=== PATIENT | male | born 1955 | race Caucasian/White ===

== ENCOUNTER 2021-10-23 22:06 | Inpatient (IN) ==
[2021-10-24] MEDS ORDERED: Naloxone 0.4 MG/ML INJ IVP PRN (00:04)
[2021-10-24] MEDS ORDERED: *HR* Promethazine 25 MG/ML VIAL IM PRN (00:04)
[2021-10-24] MEDS ORDERED: Acetaminophen 325 MG TABLET PO PRN (00:04)
[2021-10-24] MEDS ORDERED: Melatonin 3 MG TABLET PO PRN (00:04)
[2021-10-24] MEDS ORDERED: Saliva Stimulant 44.3ml BOTTLE PO PRN (00:06)
[2021-10-24] MEDS ORDERED: Artificial Tears SOLN 15 ML BOTTLE BOTH EYES PRN (00:06)
[2021-10-24] MEDS ORDERED: Saline Nasal Spray 44 ML BOTTLE NS PRN (00:06)
[2021-10-24] MEDS ORDERED: Ipratropium 1 PUFF INHALER IH SCH (00:15)
[2021-10-24 01:18] LABS: Basophils % 0.2 %; Hematocrit 44.5 % (37.5-50.1); Immature Granulocytes % 1.3 % (0-4); Lymphocytes # 0.4 K/mcL (0.6-4.6); Lymphocytes % 8.8 %; Mean Corpuscular HGB Conc 33.7 g/dL (31.6-35.5); Mean Corpuscular Hemoglobin 27.1 pg (28.0-33.3); Mean Corpuscular Volume 80.3 fL (83.0-100.0); Mean Platelet Volume 9.9 fL (9.4-12.4); Monocytes # 0.2 K/mcL (0.0-1.3); Monocytes % 3.7 %; Platelet Count 168 K/mcL (140-400); Red Blood Count 5.54 M/mcL (4.19-5.50); White Blood Count 4.6 K/mcL (4.3-11.1)
[2021-10-24 01:25] LABS: INR 1.1; Prothrombin Time 12.6 Seconds (9.4-12.1)
[2021-10-24 01:34] LABS: Platelet Estimate Normal (Normal)
[2021-10-24 01:38] LABS: Alanine Aminotransferase 47 Units/L (7-52); Albumin 3.7 g/dL (3.5-5.7); Albumin/Globulin Ratio 1.3 (1.1-2.2); Alkaline Phosphatase 73 Units/L (34-104); Aspartate Amino Transferase 103 Units/L (13-39); BUN/Creatinine Ratio 19 (6-26); Bilirubin,Total 0.6 mg/dL (0.3-1.0); Blood Urea Nitrogen 19 mg/dL (8-23); Calcium 7.8 mg/dL (8.6-10.3); Carbon Dioxide 25 mEq/L (23-29); Chloride 103 mEq/L (98-107); Globulin 2.8 g/dL (2.4-3.5); Glucose 160 mg/dL (70-105); Magnesium 2.2 mg/dL (1.6-2.6); Osmolality,Calculated 290 (280-300); Phosphorous 2.1 mg/dL (2.7-4.5); Potassium 4.3 mEq/L (3.5-5.1); Sodium 137 mEq/L (136-145); Total Protein 6.5 g/dL (6.4-8.9); eGFR For African Americans > 60 (> 60); eGFR For Non-African Americans > 60 (> 60)
[2021-10-24 01:41] LABS: Alanine Aminotransferase 48 Units/L (7-52); Albumin 3.7 g/dL (3.5-5.7); Albumin/Globulin Ratio 1.3 (1.1-2.2); Alkaline Phosphatase 74 Units/L (34-104); Aspartate Amino Transferase 101 Units/L (13-39); BUN/Creatinine Ratio 20 (6-26); Bilirubin,Total 0.6 mg/dL (0.3-1.0); Blood Urea Nitrogen 19 mg/dL (8-23); C-Reactive Protein 46 mg/L (Less than 10); Calcium 7.9 mg/dL (8.6-10.3); Carbon Dioxide 24 mEq/L (23-29); Chloride 103 mEq/L (98-107); Globulin 2.8 g/dL (2.4-3.5); Glucose 160 mg/dL (70-105); Lactate Dehydrogenase 529 Units/L (140-271); Magnesium 2.2 mg/dL (1.6-2.6); Osmolality,Calculated 292 (280-300); Potassium 4.1 mEq/L (3.5-5.1); Sodium 138 mEq/L (136-145); Total Protein 6.5 g/dL (6.4-8.9); Troponin I 0.03 ng/mL (< 0.04); eGFR For African Americans > 60 (> 60); eGFR For Non-African Americans > 60 (> 60)
[2021-10-24] MEDS ORDERED: Remdesivir 200 MG in 0.9 % Sodium Chloride 100 ML IVPB ONE (03:00)
[2021-10-24] MEDS: Ipratropium 1 PUFF INHALER IH SCH ×5 (03:25→11:57)
[2021-10-24 03:28] LABS: Ferritin 1121 ng/mL (20-250)
[2021-10-24 07:12] VITALS: BP 131/78; PULSE 92; TEMP 97.8
[2021-10-24] MEDS ORDERED: Nicotine 2 MG GUM BC PRN (07:27)
[2021-10-24 08:55] VITALS: O2SAT 88
[2021-10-24] MEDS ORDERED: Dexamethasone Sodium Phos/PF 10 MG/ML VIAL IVP SCH (09:00)
[2021-10-24] MEDS ORDERED: Aspirin 81 MG TAB.CHEW PO SCH (09:00)
[2021-10-24] MEDS ORDERED: Cholecalciferol (D-3) 1,000 UNIT (25MCG) TABLET PO SCH (09:00)
[2021-10-24] MEDS ORDERED: Furosemide 20 MG/2 ML VIAL IVP SCH (09:00)
[2021-10-24] MEDS ORDERED: Nicotine 21 MG PATCH.TD24 TD SCH (09:00)
[2021-10-24] MEDS ORDERED: Chlorhexidine Rinse 15 ML MOUTHWASH MM SCH (09:00)
[2021-10-24] MEDS ORDERED: Multivit/Ca/Min/Fe/FA 1 TAB TABLET PO SCH (09:00)
[2021-10-24] MEDS ORDERED: Finasteride 5 MG TABLET PO SCH (09:00)
[2021-10-24] MEDS ORDERED: Gabapentin 400 MG CAPSULE PO SCH (09:00)
[2021-10-24] MEDS ORDERED: Budesonide/Formoterol 160/4.5 1 PUFF INH IH SCH (10:00)
[2021-10-25] MEDS ORDERED: Remdesivir 100 MG in 0.9 % Sodium Chloride 100 ML IVPB SCH (03:00)
[2021-10-25] MEDS ORDERED: *HR* Enoxaparin 40 MG/0.4 ML SYRINGE SQ SCH (06:00)
[2021-10-26 07:40] LABS: ABG Base Excess -1 mEq/L (-2 to 3); ABG HCO3 23 mEq/L (21-27); ABG Oxygen Saturation 93 % (95-98); ABG PCO2 35 mmHg (35-45); ABG PH 7.42 pH Units (7.32-7.45); ABG PO2 66 mmHg (85-104); ABG TCO2 24 mEq/L (20-26)
== END 2021-10-24 12:30 | disposition left against medical advice (07) | DRG 871 ==
LOC: 2NENU → SUATTDRO 23:21
PROVIDERS: ADMIT Family Medicine; ATTEND Internal Medicine